=== PATIENT | female | born 1980 | race African-American/Black ===

== ENCOUNTER 2017-11-23 08:27 | Emergency (ER) | payer OTHER ==
[2017-11-23 08:39] VITALS: BP 146/89; PULSE 78; TEMP 98.4; BMI 35.4
--- NOTE | 2017-11-23 09:26 | PDOC ---
History of Present Illness - General Chief Complaint: Back Pain Stated Complaint: BACK PAIN Time Seen by Provider: 11/23/17 08:45 History Source: Patient Exam Limitations: No Limitations - History of Present Illness Initial Comments: 11/23/17 09:21 Patient here with complaints of right low back pain 2 years. Denies history or trauma, car accident, or exercise injury. States had mild intermittent and self resolving pain states pain has progressively worsened over the past few months where it is now radiating to her hip. Denies numbness or tingling to hands or feet, denies any fever, denies any dysuria or bowel problems. Taken no medications or treatment for relief, has never seen a physician Occurred: reports: other Severity: reports: mild, moderate Pain Location: reports: back Method of Injury: Yes: unknown Modifying Factors: improves with: None Loss of Consciousness: no loss of consciousness Past History - Travel Traveled outside of the country in the last 30 days: No Close contact w/someone who was outside of country & ill: No - Past Medical History Allergies/Adverse Reactions: Allergies Allergy/AdvReac Type Severity Reaction Status Date / Time No Known Allergies Allergy Verified 11/23/17 08:36 Home Medications: Ambulatory Orders Cyclobenzaprine HCl [Flexeril 10 mg] 10 mg PO BID PRN #14 tablet 11/23/17 Naproxen [Naprosyn -] 500 mg PO BID #20 tablet 11/23/17 Asthma: No COPD: No Diabetes: No Thyroid Disease: No Other medical history: DENIES. - Surgical History Abdominal Surgery: Yes Appendectomy: No Cardiac Surgery: No Cholecystectomy: No Gastric Stapling: No GI Surgery: No Lung Surgery: No Neurologic Surgery: No Orthopedic Surgery: No - Suicide/Smoking/Psychosocial Hx Smoking Status: No Smoking History: Former smoker Have you smoked in the past 12 months: Yes Number of Cigarettes Smoked Daily: 0 Information on smoking cessation initiated: No Hx Alcohol Use: No Substance Use Type: None Trauma Specific PMHX - Complaint Specific PMHX Arthritis: No Review of Systems - Review of Systems Able to Perform ROS?: Yes Is the patient limited Japanese proficient: Yes Constitutional: Yes: Symptoms Reported, See HPI. No: Fever, Malaise HEENTM: Yes: See HPI. No: Symptoms Reported Respiratory: No: Symptoms reported Musculoskeletal: Yes: Symptoms Reported, See HPI, Back Pain Integumentary: Yes: See HPI. No: Symptoms Reported All Other Systems: Reviewed and Negative *Physical Exam - Vital Signs Last Vital Signs Temp Pulse Resp BP Pulse Ox 98.4 F 78 17 146/89 100 11/23/17 08:36 11/23/17 08:36 11/23/17 08:36 11/23/17 08:36 11/23/17 08:36 - Physical Exam General Appearance: Yes: Nourished, Appropriately Dressed. No: Apparent Distress HEENT: positive: RAVINDER, Normal ENT Inspection, TMs Normal, Pharynx Normal Neck: negative: Tender Respiratory/Chest: positive: Lungs Clear Musculoskeletal: positive: Normal Inspection, Muscle Spasm (faint and mild tension to low mid/waist paravertebral ). negative: CVA Tenderness, Decreased Range of Motion, Vertebral Tenderness Extremity: positive: Normal Capillary Refill. negative: Normal Range of Motion Integumentary: positive: Normal Color, Dry, Warm Neurologic: positive: finisher polisher II-XII NML intact, Fully Oriented, Alert, Normal Mood/ Affect, Normal Response, Motor Strength 5/5 Progress Note - Progress Note Progress Note: Chronic low back pain, will treat with NSAIDs and cyclobenzaprine *DC/Admit/Observation/Transfer Diagnosis at time of Disposition: Low back pain Qualifiers: Chronicity: acute Back pain laterality: right Sciatica presence: without sciatica Qualified Code(s): M54.5 - Low back pain - Discharge Dispostion Disposition: HOME Condition at time of disposition: Stable - Referrals Referrals: Allison Calabrese MD [Primary Care Provider] - Chaitanya Brewster MD [Staff Physician] - - Patient Instructions Printed Discharge Instructions: DI for Low Back Pain Additional Instructions: Rest, no heavy lifting or exercise until pain is resolved Hot soaks to neck and low back as often as possible/hot showers or Jacuzzis No massage or therapy until spasm is gone Continue Naprosyn tablets 1 -500 mg tablet every 8 hours for the next 3 days then as needed for pain and swelling Cyclobenzaprine 1-10mg every 8 hours as needed for spasm If not significant improvement within 24 hours with medication and rest regime, followup with private physician for change in medications and /or therapy. - Post Discharge Activity Forms/Work/School Notes: Back to Work
== END 2017-11-23 09:39 | disposition home or self-care (01) ==
LOC: JERFT 08:27
DX: M54.5 Low back pain (principal)
CPT/HCPCS: 99281-25

== ENCOUNTER 2019-04-21 15:04 | Emergency (ER) | payer OTHER | END 2019-04-21 17:54 | disposition home or self-care (01) | LOC: JER 15:04 ==

== ENCOUNTER 2019-12-28 08:31 | Emergency (ER) | payer OTHER ==
[2019-12-28 08:40] VITALS: BP 130/67; PULSE 82; TEMP 97.7; BMI 37.0
--- NOTE | 2019-12-28 09:15 | PDOC ---
History of Present Illness - General Chief Complaint: Vaginal Bleeding Stated Complaint: VAGNIAL BLEEDING 5 WKS PRG Time Seen by Provider: 12/28/19 09:08 History Source: Patient Exam Limitations: No Limitations - History of Present Illness Initial Comments: 12/28/19 09:11 39 yo F currently here with c/o vaginal bleeding. approx 5 weeks . has had us earelier this 2 days ago could only see gestational sac. was done at pcp office dr Neely. no n/v not lightheaded. bleeding less than a period, described as brownish discharge on pantiliner. not lightheaded. no abd pain. light cramping. 12/28/19 09:31 Past History - Past Medical History Allergies/Adverse Reactions: Allergies Allergy/AdvReac Type Severity Reaction Status Date / Time No Known Allergies Allergy Verified 04/21/19 15:09 Home Medications: Ambulatory Orders NK [No Known Home Medication] 12/28/19 Asthma: No COPD: No Diabetes: No Thyroid Disease: No - Surgical History Abdominal Surgery: Yes Appendectomy: No Cardiac Surgery: No Cholecystectomy: No Gastric Stapling: No GI Surgery: No Lung Surgery: No Neurologic Surgery: No Orthopedic Surgery: No - Psycho Social/Smoking Cessation Hx Smoking Status: No Smoking History: Never smoked Have you smoked in the past 12 months: Yes Number of Cigarettes Smoked Daily: 0 Hx Alcohol Use: No Drug/Substance Use Hx: No Substance Use Type: None Review of Systems - Review of Systems Constitutional: No: Chills HEENTM: No: Double Vision Respiratory: No: Cough, Orthopnea Cardiac (ROS): No: Chest Pain, Edema, Irregular Heart Rate ABD/GI: No: Abdominal Distended : Yes: Other (vaginal bleeding) Integumentary: No: Bruising, Change in Color All Other Systems: Reviewed and Negative *Physical Exam - Vital Signs Last Vital Signs Temp Pulse Resp BP Pulse Ox 97.7 F 82 16 130/67 99 12/28/19 08:38 12/28/19 08:38 12/28/19 08:38 12/28/19 08:38 12/28/19 08:38 - Physical Exam 12/28/19 09:12 awake alert NAD lungs clear bilat heart rrr no mrg abd soft nt nd pelvic brownish red blood in vaginal vault. os closed. no cmt no adnexal masses. 02/12/20 09:32 aw ED Treatment Course - LABORATORY CBC & Chemistry Diagram: 12/28/19 09:50 12/28/19 09:50 Medical Decision Making - Medical Decision Making 12/28/19 09:14 39 yo F currently pregnnt with vaginal bleeding. differential threatened or incomplete ab, ectopic. plan tvus labd ivf. 12/28/19 11:08 tvus with pole measuring 5 weeks 6 days by length. no heart rate detectable. possible early. recommend serial betas and us. Discharge - Discharge Information Problems reviewed: Yes Clinical Impression/Diagnosis: Threatened miscarriage Disposition: HOME - Admission No - Follow up/Referral Referrals: Zaira Gomes MD [Primary Care Provider] - - Patient Discharge Instructions Patient Printed Discharge Instructions: Threatened Additional Instructions: your ultrasound shows a that is 5 weeks and 6 days by size. they are unable to detect a heart rate, however this could be due to very early in the . it is recomemnd you have a repeat ultrasound within one week. follow up with Dr Neely call to schedule. return for any problems or concernss.your blood type B Positive, your [facility] [place] [id number]. - Post Discharge Activity
[2019-12-28 11:02] LABS: BASO % 0.3 % (0-2.0); EOS % 1.8 % (0-4.5); HEMATOCRIT 40.1 % (32.4-45.2); LYMPH % 32.9 % (8-40); MCH 27.4 pg (25.7-33.7); MCHC 32.4 g/dl (32.0-36.0); MEAN CELL VOLUME 84.4 fl (80-96); MEAN PLT VOLUME 8.7 fl (7.5-11.1); MONO % 7.9 % (3.8-10.2); NEUT % 57.1 % (42.8-82.8); PLATELET COUNT 323 K/MM3 (134-434); RBC 4.76 M/mm3 (3.60-5.2); RDW 14.4 % (11.6-15.6); WHITE BLOOD COUNT 5.3 K/mm3 (4.0-10.0)
[2019-12-28 11:10] LABS: EPI CELLS 1.5 /HPF (0-5/HPF); HYALINE CASTS 1 /lpf (0-8); PH,URINE 5.5 (5.0-8.0); URINE APPEARANCE CLEAR; URINE BACTERIA 8.8 /hpf (NEGATIVE); URINE BILIRUBIN NEGATIVE (NEGATIVE); URINE COLOR YELLOW; URINE GLUCOSE (UA) NEGATIVE (NEGATIVE); URINE KETONE NEGATIVE (NEGATIVE); URINE LEUK ESTERASE NEGATIVE (NEGATIVE); URINE NITRITE NEGATIVE (NEGATIVE); URINE PROTEIN NEGATIVE (NEGATIVE); URINE RBC 1 /hpf (0-4); URINE UROBILINOGEN 0.2 mg/dL (0.2-1.0); URINE WBC 1 /hpf (0-5)
[2019-12-28 11:33] LABS: ALBUMIN 3.9 g/dl (3.4-5.0); BILIRUBIN,TOTAL 0.2 mg/dL (0.2-1); BLOOD UREA NITROGEN 10.7 mg/dL (7-18); CALCIUM 9.3 mg/dL (8.5-10.1); CREATININE 0.8 mg/dL (0.55-1.3); POTASSIUM 4.1 mmol/L (3.5-5.1)
== END 2019-12-28 12:29 | disposition home or self-care (01) ==
LOC: JER 08:31
DX: O20.0 Threatened abortion (principal); Z3A.01 Less than 8 weeks gestation of pregnancy
CPT/HCPCS: 36415; 76817-TC; 80053; 81003; 84702; 85025; 86850; 86900; 86901; 99284-25